=== PATIENT | female | born 1935 | race Caucasian/White ===

== ENCOUNTER 2017-09-06 14:28 | Emergency (ER) | payer MEDICARE, OTHER, SELFPAY ==
[2017-09-06 15:02] VITALS: BP 143/69; PULSE 102; RESP 32; TEMP 36.4; O2SAT 88
[2017-09-06] MEDS: methylPREDNISolone 125 MG/2 ML VIAL IV (15:28)
[2017-09-06 15:48] LABS: Add Manual Diff / Slide Review NO; Basophils Percent Auto 0.5 % (0-2); Eosinophils Percent Auto 2.2 % (2-4); Hematocrit 38.2 % (36-46); Lymphocytes Percent Auto 19.4 % (25-40); Mean Corpuscular HGB Conc 34.1 % (30-36); Mean Corpuscular Hemoglobin 30.5 PG (26-34); Mean Corpuscular Volume 89.4 fL (80-100); Monocytes Percent Auto 6.9 % (3-14); Neutrophils Absolute Auto 5800 /uL (3000-5900); Platelet Count 204 X10^3/uL (150-400); Red Blood Cell Count 4.28 X10^6/uL (4.0-5.2); Red Cell Distribution Width 13.3 % (11.6-14.8); White Blood Cell Count 8.2 X10^3/uL (4.5-11.0)
--- NOTE | 2017-09-06 15:54 | ED_ITS ---
HPI - SOB/Dyspnea General Chief Complaint: Shortness of Breath/Dyspnea Stated Complaint: OXYGEN LVLS DOWN FOR 3 DAYS,HARD TIME BREATHING Time Seen by Provider: 09/06/17 14:40 Source: patient Mode of arrival: ambulatory Limitations: no limitations History of Present Illness Patient with longstanding history of pulmonary fibrosis presents to emergency department with increasing oxygen requirements for the past few days. She historically uses 8 L at home, and was 88% on her arrival. She denies any runny nose, sore throat or cough. She denies any fever, chills nor chest pain. She denies any change in her medications. MD Complaint: shortness of breath Onset (ago): day(s) Severity: moderate Consistency/Duration: constant Relieving factors: nothing Exacerbating factors: movement and coughing Associated symptoms: denies other symptoms Related Data Home Medications Medication Instructions Recorded Confirmed atorvastatin [Lipitor] 10 mg PO QDAY #0 07/20/16 09/06/17 omega 1-icd-nik-fish oil [Fish Oil] 2 cap PO BID #0 07/20/16 09/06/17 albuterol sulfate [Ventolin HFA] 2 puff INH Q4HP PRN 09/06/17 09/06/17 atenolol 25 mg PO DAILY 09/06/17 09/06/17 calcium carbonate-vitamin D3 1 cap PO DAILY 09/06/17 09/06/17 [Calcium 600 + D(3)] cyanocobalamin (vitamin B-12) 1,000 mcg PO DAILY 09/06/17 09/06/17 [Vitamin B-12] fenofibrate 80 mg PO DAILY 09/06/17 09/06/17 furosemide 20 mg PO DAILY 09/06/17 09/06/17 levothyroxine [Synthroid] 125 mcg PO DAILY 09/06/17 09/06/17 multivitamin 1 tab PO DAILY 09/06/17 09/06/17 warfarin 5 mg PO DAILY 09/06/17 09/06/17 Allergies Allergy/AdvReac Type Severity Reaction Status Date / Time epinephrine [EPINEPHRINE] Allergy Unknown Unverified 07/18/17 12:57 meperidine [From DEMEROL] Allergy Unknown Unverified 07/18/17 12:57 NOVACAINE Allergy Unknown Uncoded 07/18/17 12:57 Review of Systems Review of Systems All systems reviewed & are unremarkable except as noted in HPI and below Constitutional Denies chills, Denies fever(s), Denies lethargy and Denies weakness Eyes Denies change in vision, Denies eye discharge, Denies irritation and Denies loss of vision ENT Ears, Nose, Mouth, and Throat: Denies change in voice, Denies neck pain and Denies sore throat Cardiovascular Denies chest pain, Denies irregular heart rhythm, Denies lightheadedness, Denies palpitations, Reports dyspnea, Reports dyspnea on exertion and Denies orthopnea Respiratory Denies cough, Reports dyspnea, Reports dyspnea on exertion and Denies wheezing Gastrointestinal Gastrointestinal: Denies abdominal pain, Denies change in bowel habits, Denies diarrhea, Denies nausea and Denies vomiting Genitourinary Denies hematuria, Denies flank pain, Denies urinary incontinence and Denies urinary urgency Musculoskeletal Denies neck pain Integumentary/Breasts Denies pruritus, Denies erythema, Denies rash and Denies wounds Neurologic Denies confusion, Denies loss of vision and Denies weakness Psychiatric Denies anxiety, Denies confusion, Denies depression, Denies homicidal ideation and Denies suicidal ideation Endocrine Denies palpitations Hematologic/Lymphatic Denies easy bruising Allergic/Immunologic Denies wheezing PFSH Social History Smoking Status: Never smoker Exam Narrative Exam Narrative: 82-year-old female in significant respiratory distress. Only a few words before she becomes severely dyspneic Initial Vital Signs Initial Vital Signs: Vital Signs Temperature 97.5 F L 09/06/17 15:02 Pulse Rate 102 H 09/06/17 15:02 Respiratory Rate 32 H 09/06/17 15:02 Blood Pressure 143/69 H 09/06/17 15:02 Pulse Oximetry 88 L 09/06/17 15:02 Const General: cooperative, acute distress and ill appearing Nutritional Appearance: malnourished [facility] Head: normocephalic and atraumatic Ears: external ears normal and TM's normal bilaterally Nose: external nose normal and No nasal discharge Face and sinus: sinuses nontender, face symmetric, no sinus tenderness and No dry mucous membranes Mouth: oral mucosae normal and moist mucous membranes Teeth and gingiva: dentition normal Throat: tonsils normal and uvula midline Neck Neck: normal visual inspection, trachea midline, No lymphadenopathy, No midline deformity and No JVD Lymphatic: No lymphedema Resp Effort & Inspection: normal respiratory effort, able to speak in complete sentences, no respiratory distress and no use of accessory muscles Auscultation: clear to auscultation bilaterally, no rales, no rhonchi and no wheezes Cardio Rate: regular rate Rhythm: regular rhythm Heart Sounds: no click, no gallops, no murmurs and no rubs Pulses: normal peripheral pulses GI Inspection: non-distended Palpation: soft, no hepatosplenomegaly, No guarding, No pulsatile mass and No tender Auscultation: normal bowel sounds Course Orders Ordered: ED Orders 09/06/17 14:54 EKG-12 Lead Stat 09/06/17 14:55 Arterial Blood Gas Stat 09/06/17 15:30 B Type Natriuretic Peptide Stat Basic Metabolic Panel Stat Blood Culture Stat Complete Blood Count AUTO DIFF Stat Lactate (Lactic Acid) Stat Magnesium Stat Procalcitonin Stat Troponin with CK Cardiac Panel Stat Discontinued Medications Methylprednisolone (Solu-Medrol 125 Mg Vial) 125 mg IV NOW ONE Stop: 09/06/17 14:58 Last Admin: 09/06/17 15:28 Dose: 125 mg Reevaluation(s) Reevaluation #1: Patient has near complete resolution of symptoms after moving the nasal cannula from her nose to her mouth. She admits that her nostrils been clogged and congested for some time. She does not even if I her oxygen at home Time: 16:06 Vital Signs - 8 hr 09/06/17 15:02 09/06/17 16:00 09/06/17 16:47 Temperature 97.5 F L Pulse Rate 102 H 90 95 H Respiratory Rate 32 H 22 23 Blood Pressure 143/69 H Blood Pressure [Left Arm] 117/66 123/69 H Pulse Oximetry 88 L 100 100 09/06/17 17:17 Temperature Pulse Rate 94 H Respiratory Rate 31 H Blood Pressure Blood Pressure [Left Arm] 123/70 H Pulse Oximetry 99 MDM - SOB/Dyspnea Lab Data Result diagrams: 09/06/17 15:30 09/06/17 15:30 Lab Results 09/06/17 09/06/17 09/06/17 Range/Units 14:55 15:30 15:30 WBC 8.2 (4.5-11.0) X10^3/uL RBC 4.28 (4.0-5.2) X10^6/uL Hgb 13.0 (12.0-16.0) g/dL Hct 38.2 (36-46) % MCV 89.4 (80-100) fL MCH 30.5 (26-34) PG MCHC 34.1 (30-36) % RDW 13.3 (11.6-14.8) % Plt Count 204 (150-400) X10^3/uL Neut % (Auto) 71.0 (50-75) % Lymph % (Auto) 19.4 L (25-40) % Lewis % (Auto) 6.9 (3-14) % Eos % (Auto) 2.2 (2-4) % Baso % (Auto) 0.5 (0-2) % Neut # (Auto) 5800 (2220-9206) /uL ABG pH 7.46 H (7.35-7.45) ABG pCO2 54.6 H (35-45) mmHg ABG pO2 242 H (80-105) mmHg ABG HCO3 39 H (23-27) mmol/L ABG Total CO2 40 H (23-27) mmol/L ABG O2 Saturation 100 (95-100) % ABG Base Excess 15.0 H (-2-3) mmol/L FiO2 8 Sodium 136 L (137-145) mmol/L Potassium 4.3 (3.4-5.1) mmol/L Chloride 90 L (98-107) mmol/L Carbon Dioxide 39 H (22-32) mmol/L BUN 29 H (7-17) mg/dL Creatinine 0.50 L (0.52-1.04) mg/dL Estimated GFR > 60.0 (>60) mL/min BUN/Creatinine Ratio 58.0 H (6-22) Glucose 108 (80-110) mg/dL Lactate (0.7-2.1) mmol/L Calcium 9.5 (8.4-10.2) mg/dL Magnesium 2.1 (1.6-2.3) mg/dL Total Creatine Kinase 28 L (30-135) U/L Troponin I 0.048 H (0.01-0.034) ng/mL B-Natriuretic Peptide 118.0 H (<29.3) Procalcitonin (<0.5) ng/mL 09/06/17 09/06/17 Range/Units 15:30 15:30 WBC (4.5-11.0) X10^3/uL RBC (4.0-5.2) X10^6/uL Hgb (12.0-16.0) g/dL Hct (36-46) % MCV (80-100) fL MCH (26-34) PG MCHC (30-36) % RDW (11.6-14.8) % Plt Count (150-400) X10^3/uL Neut % (Auto) (50-75) % Lymph % (Auto) (25-40) % Lewis % (Auto) (3-14) % Eos % (Auto) (2-4) % Baso % (Auto) (0-2) % Neut # (Auto) (7644-9095) /uL ABG pH (7.35-7.45) ABG pCO2 (35-45) mmHg ABG pO2 (80-105) mmHg ABG HCO3 (23-27) mmol/L ABG Total CO2 (23-27) mmol/L ABG O2 Saturation (95-100) % ABG Base Excess (-2-3) mmol/L FiO2 Sodium (137-145) mmol/L Potassium (3.4-5.1) mmol/L Chloride (98-107) mmol/L Carbon Dioxide (22-32) mmol/L BUN (7-17) mg/dL Creatinine (0.52-1.04) mg/dL Estimated GFR (>60) mL/min BUN/Creatinine Ratio (6-22) Glucose (80-110) mg/dL Lactate 1.0 (0.7-2.1) mmol/L Calcium (8.4-10.2) mg/dL Magnesium (1.6-2.3) mg/dL Total Creatine Kinase (30-135) U/L Troponin I (0.01-0.034) ng/mL B-Natriuretic Peptide (<29.3) Procalcitonin < 0.05 (<0.5) ng/mL Discharge Plan Departure Patient Disposition: Home, Self-Care Clinical Impression: Acute dyspnea Discharge Date/Time: 09/06/17 17:35 Interventions: ED Discharge Assessment Last Done: 09/06/17 17:41 Instructions: DI for Shortness of Breath Activity Restrictions/Additional Instructions: *You have been diagnosed with [ dyspnea ] *What to do: *Place your nasal cannula in your mouth, call [facility] [place] about humidified oxygen *Follow up with your primary care provider in 2-3 days, call for appointment *Return to ER if you should have any new, worsening or concerning symptoms Prescriptions: No Action omega 4-enl-pcc-fish oil [Fish Oil] 1,000 MG capsule 2 cap PO BID Qty: 0 RF: 0 atorvastatin [Lipitor] 10 MG tablet 10 mg PO QDAY Qty: 0 RF: 0 levothyroxine [Synthroid] 125 mcg tablet 125 mcg PO DAILY RF: 0 warfarin 5 mg tablet 5 mg PO DAILY RF: 0 atenolol 50 mg tablet 25 mg PO DAILY RF: 0 fenofibrate 160 mg tablet 80 mg PO DAILY RF: 0 furosemide 20 mg tablet 20 mg PO DAILY RF: 0 calcium carbonate-vitamin D3 [Calcium 600 + D(3)] 600 mg calcium- 200 unit Capsule 1 cap PO DAILY RF: 0 multivitamin 1 tab PO DAILY RF: 0 albuterol sulfate [Ventolin HFA] 90 MCG/PUFF HFA aerosol inhaler 2 puff INH Q4HP PRN (Reason: Shortness Of Breath) RF: 0 cyanocobalamin (vitamin B-12) [Vitamin B-12] 1,000 mcg Tablet 1,000 mcg PO DAILY RF: 0
[2017-09-06 15:58] LABS: HCO3 ABG 39 mmol/L (23-27); PCO2 ABG 54.6 mmHg (35-45); PO2 ABG 242 mmHg (80-105); TCO2 ABG 40 mmol/L (23-27); pH ABG 7.46 (7.35-7.45)
[2017-09-06 15:59] LABS: Oxygen Saturation ABG 100 % (95-100)
[2017-09-06 16:00] VITALS: BP 117/66; PULSE 90; RESP 22; O2SAT 100
--- NOTE | 2017-09-06 16:20 | PC.NURSE ---
RT Garibay setting up highflow NC with humidifier
[2017-09-06 16:29] LABS: Procalcitonin < 0.05 ng/mL (<0.5)
[2017-09-06 16:35] LABS: Blood Urea Nitrogen 29 mg/dL (7-17); Calcium 9.5 mg/dL (8.4-10.2); Carbon Dioxide 39 mmol/L (22-32); Chloride 90 mmol/L (98-107); Creatine Kinase 28 U/L (30-135); Estimated Glomerular Filt Rate > 60.0 mL/min (>60); Glucose 108 mg/dL (80-110); HEMOLYSIS < 15 (0-50); Magnesium 2.1 mg/dL (1.6-2.3); Potassium 4.3 mmol/L (3.4-5.1); Sodium 136 mmol/L (137-145)
[2017-09-06 16:47] VITALS: BP 123/69; PULSE 95; RESP 23; O2SAT 100
[2017-09-06 16:47] LABS: Troponin I 0.048 ng/mL (0.01-0.034)
--- NOTE | 2017-09-06 16:54 | PC.NURSE ---
Pt's breathing improved with using humidifier O2 by NC and able to keep o2 sat >93% at rest w/o exertion.
[2017-09-06 17:17] VITALS: BP 123/70; PULSE 94; RESP 31; O2SAT 99
[2017-09-20 16:18] LABS: Fractionated Inspired Oxygen 52
== END 2017-09-06 17:35 | disposition home or self-care (01) ==
PROVIDERS: Emergency Provider Emergency Medicine; Family Provider Internal Medicine; PCP Internal Medicine
DX: R06.00 Dyspnea, unspecified (principal)
CPT/HCPCS: 36415; 36591; 36600; 80048; 82550; 82553; 82805; 83605; 83735; 83880; 84145; 84484; 85025; 87040; 93005; 96374; 99283; 99284; J2930

== ENCOUNTER → 2017-10-01 11:55 | Outpatient (CLI) | payer MEDICARE, OTHER, SELFPAY ==
--- NOTE | 2017-10-01 | DI.CT.S_ITS ---
PROCEDURE: CT ANGIO CHEST INDICATIONS: IDIOPATHIC PULMONARY FIBROSIS PULMONARY HYPERTENSION TECHNIQUE: After the administration of intravenous contrast, 2 mm thick sections acquired from the pulmonary apices to the posterior costophrenic angles. 3-dimensional maximum intensity projection (MIP) coronal and sagittal reformats were then acquired through the thorax. For radiation dose reduction, the following was used: automated exposure control, adjustment of mA and/or kV according to patient size. COMPARISON: [facility], CT, THORAX WITH CONTRAST, 07/20/2016, 13:19. FINDINGS: Image quality: Excellent. Pulmonary arteries: Pulmonary arteries demonstrate no intraluminal filling defects to suggest central pulmonary embolism. The main pulmonary artery measures 31 mm in transverse dimension. The right main pulmonary artery measures 32 mm in transverse dimension. Lungs and pleura: Extensive fibrotic changes. No pleural effusions or pneumothorax. Central and peripheral airways are patent. Mediastinum: Heart size is normal, without pericardial effusion. No mediastinal or hilar adenopathy. Thoracic aorta is mildly enlarged measuring 39 mm in transverse dimension. Esophagus is normal in caliber, with large hiatal hernia. Bones and chest wall: No suspicious bony lesions. Ribs and thoracic spine appear intact throughout. Thyroid gland is unremarkable. No axillary or supraclavicular adenopathy. Abdomen: Visualized upper abdominal solid organs appear normal in the early arterial phase of enhancement. IMPRESSION: 1. No pulmonary embolism. 2. Enlarged pulmonary artery. Recommend correlation with pulmonary artery hypertension. 3. Large lateral hernia. 4. Prominence of the ascending thoracic aorta, consistent with aneurysmal dilation. It is stable compared to prior exam. Continued interval followup is recommended. 5. Extensive pulmonary fibrotic change. Dictated by: Susan Weston M.D. on 10/01/2017 at 13:33 Approved by: Susan Weston M.D. on 10/01/2017 at 13:46
--- NOTE | 2017-10-01 | DI.ECHO.S_ITS ---
[facility] +---------+ : : [address] : : : : [id number] : : : : Phone: [phone]+ Echocardiogram Report + + :Name: GM MURPHY Study Date: 10/01/2017 Height: 64 in : :[facility] Weight: 80 lb : : Gender: Female BSA: 1.3 m2 : :: 1935 Age: 82 yrs BP: 66/44 mmHg: :Reason For Study: Pulmonary - Hypertension : : Performed By: Pat Chavez : :Referring: ISABELLA ECHOLS : + + Interpretation Summary There is mild concentric left ventricular hypertrophy. The ejection fraction is estimated to be 60-65%. Right ventricular systolic function is moderately reduced. The aortic valve is mildly calcified. There is moderate aortic regurgitation. There is moderate to severe tricuspid regurgitation. The right ventricular systolic pressure is estimated at 57 mmHg assuming a right atrial pressure of 3 mm Hg. Compared to the prior echo study, there has been a decrease in the severity of mitral regurgitation. Compared to the prior echo exam, there has been a decrease in the severity of pulmonary hypertension. Procedure: A two-dimensional transthoracic echocardiogram with color flow and Doppler was performed. The study quality was technically adequate. Comparison is made with the echocardiogram of 07-18-16. The heart rate ranged between 91-92 bpm during the study. Left Ventricle: The left ventricle is normal in size, wall thickness, and systolic function without any focal wall motion abnormalities. There is mild concentric left ventricular hypertrophy. The ejection fraction is estimated to be 60-65%. Grade I diastolic dysfunction. Right Ventricle: The right ventricle is mildly dilated. Right ventricular systolic function is moderately reduced. Atria: The left atrial size is normal. The right atrium is mildly dilated. Mitral Valve: The mitral valve is normal in structure and function. There is mild mitral regurgitation. Compared to the prior echo study, there has been a decrease in the severity of mitral regurgitation. Aortic Valve: The aortic valve is trileaflet. The aortic valve opens well. The aortic valve is mildly calcified. There is moderate aortic regurgitation. Tricuspid Valve: The tricuspid valve leaflets are thickened and/or calcified, but open well. There is moderate to severe tricuspid regurgitation. The right ventricular systolic pressure is estimated at 57 mmHg assuming a right atrial pressure of 3 mm Hg. Compared to the prior echo exam, there has been a decrease in the severity of pulmonary hypertension. Pulmonic Valve: The pulmonic valve is normal in structure and function. There is trace pulmonic regurgitation. Great Vessels: The aortic root is normal size. The ascending aorta is mildly enlarged. Abdominal aorta measures 4.3 x 4.8 cm with thrombus identified. The IVC is of normal diameter and collapses greater than 50% with a sniff. This suggests a low right atrial pressure of 3 mm Hg. Pericardium/ Pleura There is no pericardial effusion. There is no pleural effusion. MMode/2D Measurements & Calculations LVIDd: 3.8 cm Ao root diam: 3.1 cm LVIDs: 2.4 cm Aortic Jxn: 2.7 cm FS: 35.7 % asc Aorta Diam: 3.7 cm EPSS: 0.35 cm Ao Arch Diam (Prox Trans): 2.9 cm IVSd: 0.87 cm LVPWd: 0.86 cm LV honeycutt. diameter/BSA (cm/m^2): 2.8 LV sys. diameter/BSA (cm/m^2): 1.8 LA dimension: 3.6 cm RA long axis: 4.6 cm LA A2 area: 13.1 cm2 RA area: 16.9 cm2 LA A4 area: 20.1 cm2 RA vol: 53.4 ml LA length (vol): 5.2 cm RA : 40.3 ml/m2 LA vol: 42.9 ml IVC diam: 0.79 cm LA vol index: 32.4 ml/m2 RVDd major: 6.1 cm RVD1 (basal): 4.5 cm RVD2 (mid): 3.8 cm Doppler Measurements & Calculations Ao V2 max: 161.5 cm/sec AI P1/2t: 616.3 msec Ao V2 mean: 89.8 cm/sec AI dec slope: 229.2 cm/sec2 Ao max P.4 mmHg Ao mean P.1 mmHg Ao V2 VTI: 24.9 cm MV E max desmond: 51.2 cm/sec TR max desmond: 365.8 cm/sec MV A max desmond: 100.4 cm/sec TR max P.5 mmHg MV E/A: 0.51 PA V2 max: 71.0 cm/sec Med Peak E' Desmond: 3.2 cm/sec PA V2 mean: 44.4 cm/sec E/E' med: 16.2 PA mean P.97 mmHg Lat Peak E' Desmond: 8.2 cm/sec PA Accel Time: 0.11 sec E/E' lat: 6.2 E/e' average: 11.2 MV dec time: 0.21 sec MV P1/2t: 62.7 msec MV 2t max desmond: 50.9 cm/sec MVA(2t): 3.5 cm2 Reading Physician:02:48 PM
== END ==
PROVIDERS: Family Provider Internal Medicine; PCP Internal Medicine; Visit Provider Internal Medicine Critical Care Medicine
DX: J84.112 Idiopathic pulmonary fibrosis (principal); K44.9 Diaphragmatic hernia without obstruction or gangrene; I27.20 Pulmonary hypertension, unspecified
CPT/HCPCS: 71275; 93306; Q9967

== ENCOUNTER → 2017-10-08 14:00 | Outpatient (RCR) | payer MEDICARE, OTHER, SELFPAY ==
--- NOTE | 2017-09-11 14:25 | PR.REVALNOTE ---
CR Initial Assessment Report MA Education Start: 08/27/17 16:08 Freq: Status: Active Protocol: Document 08/27/17 16:08 ERIC (Rec: 08/27/17 16:09 ERIC [id number]) MA Education Education instucted with pacing and prioritizing to prevent fatigue MA Pulmonary Rehab. Re-Assessment Start: 09/10/17 09:11 Freq: Status: Active Protocol: Document 09/10/17 09:11 ERIC (Rec: 09/10/17 09:22 ERIC [id number]) MA Exercise Re-Assessment Session 2 Type Laps/Ambulate METs (resistance level) 75 ft without stopping Interval Training No Shortness of Breath with Exercise Yes Desaturation with Exercise Yes: training with breath sequencing and pacing Session 1 Type BioDex METs (resistance level) 2.15 % Improvement 53% Interval Training No Shortness of Breath with Exercise Yes Free Weight Yes: 2 lbs 12r 1s Band Level Yes: #1 Intervention patient will be able to do 2 sets of 12 reps as tolerated MA Nutrition Re-Assessment Hypoxia Re-Assessment patient requires up to 8 lpm with any exertion, unable to tolerate an oxymizer pendant cannula. Patient is using The Trilogy non-invasive ventilator at [facility] and during the day when possible MA Education Re-Assessment Topics Normal Anatomy and Physiology Chronic Lung Disease Description and Interpretation Medical Tests Breathing Retraining Benefits of Exercise Goals Pt will mast PLB and Diaphragmatic Breating Pt will Master Energy Conserving Techniques Pt will learn exercise safety Pt will continue ED topics until completion MA Psychosocial Re-Assessment Patient in Class Regularly Yes Progress Towards Goal patient attends 2x week regularly Interventions Pt attending class regularily Referral Referred to [facility] Additional Comment patient given information about meals on wheels, visiting [facility] the subject of hospice to help prepare patient for future Document 09/11/17 14:16 ERIC (Rec: 09/11/17 14:23 ERIC [id number]) MA Exercise Re-Assessment Session 3 Type Laps/Ambulate METs (resistance level) 1.33 % Improvement 19% Interval Training No Shortness of Breath with Exercise Yes: pt able to ambulate 75ft before resting Desaturation with Exercise No Session 2 Type Nustep METs (resistance level) 1.24 % Improvement 5% Interval Training No Shortness of Breath with Exercise Yes: patient becomes very dyspneic with exertion requires frequent rests Desaturation with Exercise No Session 1 Type BioDex METs (resistance level) 2.15 % Improvement 8% Interval Training No Shortness of Breath with Exercise Yes Desaturation with Exercise No Free Weight Yes: 2lbs 1 sets 8-10 reps Band Level Yes: #1 patient sits with all resistance exercises MA Education Re-Assessment Topics Normal Anatomy and Physiology Chronic Lung Disease Breathing Retraining Medication Goals Pt will mast PLB and Diaphragmatic Breating Pt will Master Energy Conserving Techniques Pt will learn exercise safety Pt will continue ED topics until completion MA Psychosocial Re-Assessment Patient in Class Regularly Yes Additional Comment patient attends 2x/week
[2017-10-04 16:00] VITALS: BMI 13.7
--- NOTE | 2017-10-04 16:15 | PR.REVALNOTE ---
CR Initial Assessment Report CT Education Start: 08/27/17 16:08 Freq: Status: Active Protocol: Document 08/27/17 16:08 ERIC (Rec: 08/27/17 16:09 ERIC [id number]) CT Education Education instucted with pacing and prioritizing to prevent fatigue CT Pulmonary Rehab. Re-Assessment Start: 09/10/17 09:11 Freq: Status: Active Protocol: Document 09/10/17 09:11 ERIC (Rec: 09/10/17 09:22 ERIC [id number]) CT Exercise Re-Assessment Session 2 Type Laps/Ambulate METs (resistance level) 75 ft without stopping Interval Training No Shortness of Breath with Exercise Yes Desaturation with Exercise Yes: training with breath sequencing and pacing Session 1 Type BioDex METs (resistance level) 2.15 % Improvement 53% Interval Training No Shortness of Breath with Exercise Yes Free Weight Yes: 2 lbs 12r 1s Band Level Yes: #1 Intervention patient will be able to do 2 sets of [address] Nutrition Re-Assessment Hypoxia Re-Assessment patient requires up to 8 lpm with any exertion, unable to tolerate an oxymizer pendant cannula. Patient is using The Trilogy non-invasive ventilator at [facility] and during the day when possible CT Education Re-Assessment Topics Normal Anatomy and Physiology Chronic Lung Disease Description and Interpretation Medical Tests Breathing Retraining Benefits of Exercise Goals Pt will mast PLB and Diaphragmatic Breating Pt will Master Energy Conserving Techniques Pt will learn exercise safety Pt will continue ED topics until completion CT Psychosocial Re-Assessment Patient in Class Regularly Yes Progress Towards Goal patient attends 2x week regularly Interventions Pt attending class regularily Referral Referred to [facility] Additional Comment patient given information about meals on wheels, visiting [facility] the subject of hospice to help prepare patient for future Document 09/11/17 14:16 ERIC (Rec: 09/11/17 14:23 ERIC [id number]) CT Exercise Re-Assessment Session 3 Type Laps/Ambulate METs (resistance level) 1.33 % Improvement 19% Interval Training No Shortness of Breath with Exercise Yes: pt able to ambulate 75ft before resting Desaturation with Exercise No Session 2 Type Nustep METs (resistance level) 1.24 % Improvement 5% Interval Training No Shortness of Breath with Exercise Yes: patient becomes very dyspneic with exertion requires frequent rests Desaturation with Exercise No Session 1 Type BioDex METs (resistance level) 2.15 % Improvement 8% Interval Training No Shortness of Breath with Exercise Yes Desaturation with Exercise No Free Weight Yes: 2lbs 1 sets 8-10 reps Band Level Yes: #1 patient sits with all resistance exercises CT Education Re-Assessment Topics Normal Anatomy and Physiology Chronic Lung Disease Breathing Retraining Medication Goals Pt will mast PLB and Diaphragmatic Breathing Pt will Master Energy Conserving Techniques Pt will learn exercise safety Pt will continue ED topics until completion CT Psychosocial Re-Assessment Patient in Class Regularly Yes Additional Comment patient attends 2x/week Document 10/04/17 16:00 ERIC (Rec: 10/04/17 16:15 [facility] [id number]) CT Exercise Re-Assessment Session 3 Type BioDex METs (resistance level) 2.15 % Improvement 0% Interval Training No Shortness of Breath with Exercise Yes: pt experiences chronic dyspnea Desaturation with Exercise No Session 2 Type Nustep METs (resistance level) 1.57 % Improvement 26% Interval Training No Shortness of Breath with Exercise Yes Desaturation with Exercise No Free Weight Yes: 1# 12r 2s Band Level Yes: #[address] Nutrition Re-Assessment Height 167.64 cm Weight 38.555 kg Current BMI (BMI) 13.7 Progress to Weight Goal No Attempts to Re-Motivate Toward Goal Yes Diabetes/Dietitian Waiver Diabetes Consult N/A Diabetes Consult Patient Discussion Yes Hypoxia Re-Assessment pt experiences severe dyspnea with all activity and requires 6-8 LPM at all times. She is very fatigued which affects her attendance in CT. CT Education Re-Assessment Topics Normal Anatomy and Physiology Chronic Lung Disease Breathing Retraining Bronchial Hygiene Medication Goals Pt will mast PLB and Diaphragmatic Breathing Pt will Master Energy Conserving Techniques Pt will learn exercise safety Pt will continue ED topics until completion CT Psychosocial Re-Assessment Patient in Class Regularly No Interventions Pt talked to about attending class more often Referral Needed No Additional Comment Pt states she receives benefit from attending but her severe dyspnea leaves her so fatigued that she is having a hard time mustering the energy to leave the house. Goals Participate in social and educational discussion Received emotional support from family/friends Additional Comment pt attends 2x week
== END ==
LOC: PUL 08-08 11:14
PROVIDERS: Family Provider Internal Medicine; PCP Internal Medicine; Visit Provider Internal Medicine
DX: J84.9 Interstitial pulmonary disease, unspecified (principal)
CPT/HCPCS: G0237; G0238; G0239